=== PATIENT | female | born 1945 | race Caucasian/White ===

== ENCOUNTER → 2019-12-08 | Day surgery (SDC) | payer MEDICARE, OTHER ==
[2019-12-04 11:21] LABS: BASOPHILS # (AUTO) 0.1 (0.0-0.1); BASOPHILS % 1.2 % (0.0-1.0); EOSINOPHILS # (AUTO) 0.3 (0.0-0.4); EOSINOPHILS % 3.9 % (0.0-6.0); HEMATOCRIT 38.8 % (34.2-44.1); HEMOGLOBIN 12.3 g/dL (12.0-16.0); LYMPHOCYTES % 27.7 % (18.0-39.1); MEAN CORPUSCULAR HEMOGLOBIN 29.1 pg (28-32); MEAN CORPUSCULAR HGB CONC 31.7 g/dL (31-35); MEAN CORPUSCULAR VOLUME 91.9 fL (81-99); MONOCYTES # (AUTO) 0.6 (0.2-0.8); MONOCYTES % 8.2 % (4.4-11.3); NEUTROPHILS # (AUTO) 4.2 (2.1-6.9); NEUTROPHILS % 58.4 % (38.7-80.0); PLATELET COUNT 205 x10e3/uL (140-360); RED BLOOD COUNT 4.22 x10e6/uL (3.6-5.1); RED CELL DISTRIBUTION WIDTH 12.1 % (11.7-14.4)
[2019-12-04 11:37] LABS: ALBUMIN 3.7 g/dL (3.5-5.0); ALBUMIN/GLOBULIN RATIO 1.2 (0.8-2.0); ANION GAP 12.7 mmol/L (8-16); CALCIUM 9.1 mg/dL (8.4-10.2); CREATININE, SERUM 1.72 mg/dL (0.57-1.11); POTASSIUM 4.7 mmol/L (3.5-5.1)
[~2019-12-08] VITALS: Ht 172.7 cm; Wt 103.4 kg
[2019-12-08] VITALS (8 sets, daily range): BP systolic 97–119; BP diastolic 41–57
[~2019-12-08] MED LIST: ALPRAZOLAM 0.5 MG TAB ONE; AMIODARONE HCL200 MG PO; ATENOLOL50 MG PO; CRESTOR10 MG PO; DIGOXIN125 MCG PO; DIPHENHYDRAMINE HCL 25 MG CAP ONE; FENTANYL CITRATE/PF 100MCG/2 ML INJ ONE; FUROSEMIDE40 MG PO; GLIPIZIDE5 MG PO; HEPARIN SOD/SOD CHLORIDE 2,000 ML ONE; IOPAMIDOL 370 MG/ML 200 ML INFUS..BTL INJ ONE; LEVOTHYROXINE200 MCG PO; LIDOCAINE HCL 2% LOCAL 20 ML VIAL ONE; LISINOPRIL5 MG PO; METFORMIN HCL500 M2 PO; MIDAZOLAM HCL 2 MG/2 ML VIAL ONE; SODIUM CHLORIDE 0.9% 1000ML 1,000 ML ONE; XARELTO20 MG PO
--- NOTE | 2019-12-08 10:52 | Operative Report ---
DATE OF PROCEDURE: 12/08/2019 SURGEON: Jason Anderson MD INDICATIONS: Coronary artery disease, abnormal stress test. PROCEDURES PERFORMED: 1. Ultrasound-guided access into the right radial artery with sheath placement. 2. Conscious sedation. 3. Left heart catheterization, selective coronary angiography. 4. Deployment of right wrist TR band. COMPLICATIONS: None. RECOMMENDATIONS: medical therapy. DESCRIPTION OF PROCEDURE: Access was obtained in the right radial artery. Using ultrasound guidance, a 5-Greek sheath was placed. Coronary angiography demonstrated mild coronary artery disease in the left main, left anterior descending and right coronary artery, 10% to 20% luminal irregularities, mid circumflex 30% to 50% stenosis. LV end-diastolic pressure of 10. No gradient across the aortic valve on pullback. No intervention deemed necessary. Right wrist TR band applied. The patient discharged home the same day. Jason Anderson MD [facility] /[id number]
--- NOTE | 2019-12-08 11:40 | NUR ---
IV left hand 20 gauge appears to be without signs or symptoms of infiltration at this time. IV left hand removed. Catheter intact. Dressing placed to left hand per unit protocol. Dressing to left hand is clean,dry, and intact. Dressing to right wrist is clean,dry, and intact. Right wrist support in place. Patient and patient's instructed to remove right wrist support tomorrow morning. Patient and patient's verbalized understanding. 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 Patient discharged with belongings. No distress noted at time of discharge.
== END | disposition home or self-care (01) ==
LOC: CATH LAB 07:35
PROVIDERS: ATTEND Internal Medicine Interventional Cardiology
DX: I25.118 Atherosclerotic heart disease of native coronary artery with other forms of angina pectoris (principal); R94.39 Abnormal result of other cardiovascular function study; I48.11 Longstanding persistent atrial fibrillation; I10 Essential (primary) hypertension; E13.9 Other specified diabetes mellitus without complications; Z01.812 Encounter for preprocedural laboratory examination; Z11.59 Encounter for screening for other viral diseases; Z79.84 Long term (current) use of oral hypoglycemic drugs; Z79.02 Long term (current) use of antithrombotics/antiplatelets; Z68.35 Body mass index [BMI] 35.0-35.9, adult; Z95.0 Presence of cardiac pacemaker; Z82.49 Family history of ischemic heart disease and other diseases of the circulatory system
CPT/HCPCS: 36415; 76937; 80053; 85025; 87635; 93458; C1769 ×2; C1887; J2001; J2250; J3010; J7030; Q9967; 99152; 99153